=== PATIENT | male | born 1990 | race African-American/Black ===

== ENCOUNTER 2020-12-26 00:20 | Emergency (ER) | payer MEDICAID ==
[~2020-12-26] VITALS: Ht 185.4 cm; Wt 91.0 kg
[2020-12-26] MEDS ORDERED: MORPHINE SULFATE 4 MG/ML CPJ (NOT FOR IM USE) IV STA (00:52)
[2020-12-26] MEDS ORDERED: ONDANSETRON HCL 4MG/2ML INJ IV STA (00:52)
[2020-12-26] MEDS ORDERED: SODIUM CHLORIDE 0.9% 1,000 ML IV ONE (01:00)
[2020-12-26 01:11] LABS: BASOPHILS % 0.5 % (0.0-2.0); EOSINOPHILS % 2.1 % (0.0-5.0); HEMATOCRIT. 43.6 % (42.0-52.0); HEMOGLOBIN. 14.4 g/dL (14.0-18.0); LYMPHOCYTES % 28.8 % (20.0-50.0); MEAN CORPUSCULAR HEMOGLOBIN 27.6 pg (28.0-32.0); MEAN CORPUSCULAR VOLUME 83.3 fL (80.0-94.0); MEAN PLATELET VOLUME 7.7 fl (7.4-10.4); MONOCYTES % 9.6 % (2.0-8.0); PLATELET 249 x1000/uL (130-400); RED BLOOD CELL COUNT 5.24 mill/uL (4.7-6.1); RED CELL DISTRIBUTION WIDTH 14.2 % (11.6-14.6)
[2020-12-26 01:16] LABS: CHLORIDE 105 mEq/L (98-107)
[2020-12-26 03:55] VITALS: BP 109/75
[2020-12-26] MEDS ORDERED: HYDR-4001 MT ×2 (04:59→05:00)
[2020-12-26] MEDS ORDERED: IBUP-2028 MT (05:00)
== END 2020-12-26 06:27 | disposition home or self-care (01) ==
LOC: ER 00:20
DX: S02.2XXA Fracture of nasal bones, initial encounter for closed fracture (principal); S82.152A Displaced fracture of left tibial tuberosity, initial encounter for closed fracture; V43.52XA Car driver injured in collision with other type car in traffic accident, initial encounter; Y93.89 Activity, other specified; Y92.410 Unspecified street and highway as the place of occurrence of the external cause
CPT/HCPCS: 36415; 70450; 70486; 73080; 73560; 73610; 80053; 85025; 96361; 96374; 96375; 99285; J2270; J2405; J7030; L1830; Z7610